=== PATIENT | male | born 1980 | race Two or more races ===

== ENCOUNTER → 2017-10-04 | Emergency (ER) | payer OTHER ==
[~2017-10-04] VITALS: Ht 188 cm; Wt 124.7 kg
== END | disposition home or self-care (01) ==
LOC: ER 21:08
DX: M25.571 Pain in right ankle and joints of right foot (principal); G89.11 Acute pain due to trauma; S93.401S Sprain of unspecified ligament of right ankle, sequela; X50.0XXS Overexertion from strenuous movement or load, sequela

== ENCOUNTER 2021-01-14 08:09 | Emergency (ER) | payer OTHER ==
[~2021-01-14] VITALS: Ht 188 cm; Wt 127.0 kg
[2021-01-14] MEDS ORDERED: KETO10TA2 PO (14:47)
== END 2021-01-14 14:58 | disposition home or self-care (01) ==
LOC: ER 08:09
DX: S93.402A Sprain of unspecified ligament of left ankle, initial encounter (principal); S93.692A Other sprain of left foot, initial encounter; X50.0XXA Overexertion from strenuous movement or load, initial encounter; Y93.89 Activity, other specified; Y92.69 Other specified industrial and construction area as the place of occurrence of the external cause; Y99.8 Other external cause status

== ENCOUNTER 2023-09-23 11:50 | Emergency (ER) | payer OTHER ==
[~2023-09-23] VITALS: Ht 188 cm; Wt 131.5 kg
[~2023-09-23 11:50] MED LIST: KETO10TA2 PO
[2023-09-23] MEDS ORDERED: KETOROLAC TROMETHAMINE 60 MG VIAL IM STA (13:00)
== END 2023-09-23 16:00 | disposition home or self-care (01) ==
LOC: ER 11:50
DX: S93.602A Unspecified sprain of left foot, initial encounter (principal)